=== PATIENT | female | born 1985 | race Caucasian/White ===

== ENCOUNTER 2017-08-27 20:30 | Emergency (ER) | payer SELFPAY ==
[2017-08-27 20:44] VITALS: BP 144/82; PULSE 86; O2SAT 98
[2017-08-27] MEDS ORDERED: VITAMIN B-1 100 MG PO ONE (20:46)
--- NOTE | 2017-08-27 20:46 | ERPHSYRPT ---
- History of Present Illness Time Seen by Provider: 08/27/17 20:41 Source: patient, EMS Exam Limitations: no limitations Physician History: pt is seeking help for etoh use - denies Suicidal or homicidal intentions or trauma or other symptoms at this time; has normal exam , but under some influence of etoh - will call sober ride after checkout; no SObreath, no CP , no abd pain Timing/Duration: today Severity of Symptoms-Max: moderate Severity of Symptoms-Current: moderate Context related to: other (etoh use) Suicidal thoughts: other (none) Associated Symptoms: denies symptoms Previous symptoms: same symptoms as today, no recent treatment - Past Medical History Pertinent Past Medical History: No - Review of Systems Constitutional: No Fever, No Chills Eyes: No Symptoms Ears, Nose, & Throat: No Symptoms Respiratory: No Cough, No Dyspnea Cardiac: No Chest Pain, No Edema, No Syncope Abdominal/Gastrointestinal: No Abdominal Pain, No Nausea, No Vomiting, No Diarrhea Genitourinary Symptoms: No Dysuria Musculoskeletal: No Back Pain, No Neck Pain Skin: No Rash Neurological: No Dizziness, No Focal Weakness, No Sensory Changes Psychological: Other (alcohol over use) Endocrine: No Symptoms Hematologic/Lymphatic: No Symptoms Immunological/Allergic: No Symptoms All Other Systems: Reviewed and Negative - Nursing Vital Signs Nursing Vital Signs: Initial Vital Signs Temperature 98.2 F 08/27/17 20:38 Pulse Rate 86 08/27/17 20:38 Respiratory Rate 18 08/27/17 20:38 Blood Pressure 144/82 08/27/17 20:38 O2 Sat by Pulse Oximetry 98 08/27/17 20:38 Pain Scale Pain Intensity 0 - Physical Exam General Appearance: no apparent distress Eyes, Ears, Nose, Throat Exam: normal ENT inspection, moist mucous membranes Neck Exam: normal inspection, non-tender, supple Respiratory Exam: normal breath sounds, lungs clear, No respiratory distress Cardiovascular Exam: regular rate/rhythm, No edema Gastrointestinal/Abdominal Exam: soft, No tenderness, No distention Extremities Exam: normal inspection, normal range of motion, No evidence of injury, No edema Peripheral Pulses: carotid (R): 2+, carotid (L): 2+, femoral (R): 2+, femoral (L ): 2+, dorsalis-pedis (R): 2+, dorsalis-pedis (L): 2+ Current Suicidality: denies suicide plan Neurological Exam: alert, bumboater II-XII nml as tested, oriented x 3 Appearance: appropriate appearance, appropriate insight, no memory impairment, denies illness Behavior/Eye Contact/Speech: alert & cooperative, cooperative, good eye contact Thoughts/Hallucinations: normal thought pattern, no apparent hallucination Skin Exam: normal color, warm, dry, No rash - Course Nursing assessment & vital signs reviewed: Yes Ordered Tests: Active Orders 24 hr Category Date Time Status EKG-ER Only STAT Care 08/27/17 20:46 Active Pulse Oximetry (ED) STAT Care 08/27/17 20:46 Active Urine Triage Profile Stat Lab 08/27/17 21:00 Completed Medication Summary Discontinued Medications Generic Name Dose Route Start Last Admin Trade Name Freq PRN Reason Stop Dose Admin Nicotine 1 each 08/28/17 10:00 Nicotine Patch 7mg TD 09/27/17 09:59 DAILY KIRK Thiamine HCl 100 mg 08/27/17 20:46 Vitamin B-1 100 Mg PO 08/27/17 20:47 STAT ONE Lab/Rad Data: Laboratory Results 08/27/17 Range/Units 21:00 Urine Opiates Level NEG. (NEGATIVE) Ur Methadone NEG. (NEGATIVE) Urine Barbiturates NEG. (NEGATIVE) Ur Phencyclidine (PCP) NEG. (NEGATIVE) Urine Amphetamine NEG. (NEGATIVE) U Benzodiazepine Level NEG. (NEGATIVE) Urine Cocaine NEG. (NEGATIVE) Urine Marijuana (THC) POS. (NEGATIVE) - Progress Progress: improved, re-examined Progress Note: 08/28/17 01:38 the pt eloped prior to her lab evaluation then returned but declined to wait for further evaluation and had a sober ride and was referred for outpt treatmetn /counselling over this time she appeared to become clinically sober and had the capacity to decline further additional workup in ER she was advised to return if any symptoms of concern and expressed no SI/HI at that time. she is aware that undetected pathology could be evolving with a need for workup and treatment 08/28/17 01:40 Counseled pt/family regarding: drug and/or alcohol abuse, lab results, diagnosis , need for follow-up - Departure Time of Disposition: 01:44 (left prior to completion of treatmetn) Departure Disposition: AMA (not actual AMA just declined workup in ER) Clinical Impression: ETOH abuse Condition: Good Critical Care Time: No Referrals: [facility] [Primary Care Provider] - Instructions: Alcohol Abuse and Alcoholism (DC) Additional Instructions: followup for treatment of alcohol use and return meantime if any additional concerns
[2017-08-27 22:19] LABS: Amphetamine,Urine NEG. (NEGATIVE); Barbiturate,Urine NEG. (NEGATIVE); Benzodiazepine,Urine NEG. (NEGATIVE); Cocaine,Urine NEG. (NEGATIVE); Methadone,Urine NEG. (NEGATIVE); Opiate,Urine NEG. (NEGATIVE); PCP,Urine NEG. (NEGATIVE); THC,Urine POS. (NEGATIVE)
[2017-08-28] MEDS ORDERED: NICOTINE PATCH 7MG TD SCH (10:00)
== END 2017-08-27 21:14 | disposition left against medical advice (07) ==
LOC: ED 20:30
DX: F10.10 Alcohol abuse, uncomplicated (principal)
CPT/HCPCS: 80307; 99281; A9270-GY